=== PATIENT | female | born 1970 | race Caucasian/White ===

== ENCOUNTER 2020-10-03 15:22 | Emergency (ER) | payer OTHER | END 2020-10-03 15:49 | disposition home or self-care (01) | LOC: JVIRT 15:22 | DX: Z11.59 Encounter for screening for other viral diseases (principal) | CPT/HCPCS: C9803; Q3014-GT; U0003 ==

== ENCOUNTER 2020-12-07 10:35 | Emergency (ER) | payer OTHER | END 2020-12-07 11:56 | disposition home or self-care (01) | LOC: JVIRT 10:35 | DX: Z20.822 Contact with and (suspected) exposure to COVID-19 (principal) | CPT/HCPCS: C9803; G2012-GT; U0003 ==

== ENCOUNTER 2024-01-25 17:37 | Emergency (ER) | payer OTHER ==
[2024-01-25 18:10] VITALS: BP 123/53; PULSE 94; RESP 18; TEMP 98.5; BMI 37.3
[2024-01-25] MEDS: FAMOTIDINE 20 MG/50 ML IVPB 20 MG/50 ML MG IVPB ONE (18:21)
[2024-01-25 18:55] LABS: HEMATOCRIT 38.4 % (32.4-45.2); HEMOGLOBIN 13.4 G/dL (10.7-15.3); MCHC 34.8 g/dl (32.0-36.0); MEAN CELL VOLUME 91.8 fl (80-96); MEAN PLT VOLUME 9.4 fl (7.5-11.1); PLATELET COUNT 177.4 10^3/uL (134-434); RBC 4.18 10^6/uL (3.60-5.2); RDW 13.3 % (11.6-15.6); WHITE BLOOD COUNT 5.6 10^3/uL (4.0-10.8)
[2024-01-25 19:01] LABS: PLATELET ESTIMATE ADEQUATE
[2024-01-25 19:40] LABS: ALBUMIN 4.4 g/dl (3.4-5.0); ALK PHOS 93 U/L (45-117); ANION GAP 7 mmol/L (4-13); BILIRUBIN,TOTAL 0.3 mg/dl (0.2-1); CALCIUM 9.6 mg/dl (8.5-10.1); CHLORIDE 104 mmol/L (98-107); CO2 30 mmol/L (21-32); CREATININE 0.8 mg/dl (0.6-1.3); GLUCOSE,RANDOM 123 mg/dl (74-106); POTASSIUM 4.6 mmol/L (3.5-5.1); SGOT/AST 18 U/L (15-37); SGPT/ALT 15 U/L (7-52); SODIUM 141 mmol/L (136-145)
== END 2024-01-25 20:14 | disposition home or self-care (01) ==
LOC: FER 17:37
DX: R07.89 Other chest pain (principal); R06.02 Shortness of breath; R05.9 Cough, unspecified
CPT/HCPCS: 36415; 71045-TC-FY; 80053; 84484; 85027; 93005; 99285-25